=== PATIENT | female | born 1935 | race Caucasian/White ===

== ENCOUNTER 2016-11-07 09:34 | Emergency (ER) | payer OTHER ==
[~2016-11-07] VITALS: Ht 167.6 cm; Wt 73.0 kg
[2016-11-07] MEDS ORDERED: LISINOPRIL20 MG PO (10:00)
[2016-11-07] MEDS ORDERED: SIMVASTATIN20 MG PO (10:01)
[2016-11-07] MEDS ORDERED: GLIMEPIRIDE2 MG PO (10:01)
[2016-11-07] MEDS ORDERED: CENTRUM ADULTS1 EACH PO (10:02)
[2016-11-07] MEDS ORDERED: CALTRATE 600 +1 EAC1 PO (10:02)
[2016-11-07 11:08] LABS: BASOPHIL COUNT 0.1 K/uL (0-0.1); EOSINOPHIL (%) 0.1 % (0-5); HEMATOCRIT 38.9 % (36.0-46.0); IMMATURE GRANULOCYTE (%) 0.5 % (0.0-0.7); IMMATURE GRANULOCYTE COUNT 0.1 K/uL; INSTRUMENT ABS NEUTROPHIL CT 14.8 K/uL; LYMPHOCYTE COUNT 1.3 K/uL (1.0-2.8); MCH 30.5 PG (29.0-34.0); MCHC 32.9 G/DL (30.0-36.0); MCV 92.6 FL (83-99); MEAN PLAT.VOLUME 9.3 uM^3 (9.5-12.4); MONOCYTE (%) 9.6 % (3-12); MONOCYTE COUNT 1.7 K/uL (0-0.8); NEUTROPHIL (%) 82.1 % (45-76); NEUTROPHIL COUNT 14.8 K/uL (1.8-6.4); PLATELET COUNT 262 K/uL (156-360); RBC DIS.WIDTH-CV 13.4 % (11.8-14.6); RBC DIS.WIDTH-SD 45.8 % (39-53); WHITE BLOOD COUNT 18.1 K/uL (4.1-10.2)
[2016-11-07 11:21] LABS: CHLORIDE 105 mEq/L (99-109); POTASSIUM 3.7 mEq/L (3.7-5.4); SODIUM 137 mEq/L (136-147)
[2016-11-07 11:24] LABS: GLUCOSE 151 mg/dL (70-99)
[2016-11-07 11:25] LABS: ANION GAP 10 MEQ/L (2-14)
[2016-11-07 11:26] LABS: TOTAL BILIRUBIN 0.8 mg/dL (0.0-1.0)
[2016-11-07 11:27] LABS: ALKALINE PHOSPHATASE 75 IU/L (3-129); GFR ESTIMATE (CALCULATED) 46 mL/min/
[2016-11-07 11:28] LABS: UREA NITROGEN (BUN) 18 mg/dL (9-23)
[2016-11-07 11:43] LABS: TROP-I INTERPRETATION NEGATIVE; TROPONIN-I 0.01 ng/mL (0.0-0.30)
[2016-11-07 12:28] LABS: ADD MIUA? YES; BILIRUBIN NEGATIVE; BLOOD SMALL; COLOR AMBER ((YELLOW)); GLUCOSE (STRIP) NEGATIVE; KETONES NEGATIVE; LEUKOCYTES LARGE; NITRITE POSITIVE; PROTEIN (STRIP) 100; SPECIFIC GRAVITY 1.015 (1.000-1.030); UROBILINOGEN 0.2 MG/DL (0.2-1.0)
[2016-11-07 12:53] LABS: BACTERIA 2+ /HPF; EPITHELIAL CELLS RARE /HPF; MUCUS 2+ /LPF; RED BLOOD CELLS 40-50 /HPF (0-5); UCUL ADDED? YES; WHITE BLOOD CELLS TNTC /HPF (0-5); WHITE BLOOD CELLS CLUMP FEW /HPF (0-5)
[2016-11-07] MEDS ORDERED: KEFLEX500 MG PO (15:05)
[2016-11-07 16:18] VITALS: BP 138/67
== END 2016-11-07 16:18 | disposition home or self-care (01) ==
LOC: EME 09:34
PROVIDERS: Emergency Medicine
DX: N39.0 Urinary tract infection, site not specified (principal); R26.2 Difficulty in walking, not elsewhere classified; Z91.81 History of falling; E11.9 Type 2 diabetes mellitus without complications; Z79.84 Long term (current) use of oral hypoglycemic drugs; Z87.891 Personal history of nicotine dependence
CPT/HCPCS: 70450; 71020; 80053; 81003; 83605; 84484; 85025; 87077; 87086; 87186; 93005; 99281; 99285; G8978 GP CJ; G8979 GP CH; G8987 GO CJ; G8988 CI; J0696; J7040; J7050